=== PATIENT | female | born 1955 | race Caucasian/White ===

== ENCOUNTER 2018-04-01 08:38 | Outpatient (CLI) | payer BC | END 2018-04-01 08:39 | disposition home or self-care (01) | LOC: BICMAMMO 08:38 | PROVIDERS: ATTEND Obstetrics & Gynecology | DX: Z12.31 Encounter for screening mammogram for malignant neoplasm of breast (principal); R92.1 Mammographic calcification found on diagnostic imaging of breast | CPT/HCPCS: 77063; 77067 ==

== ENCOUNTER 2019-04-06 08:57 | Outpatient (CLI) | payer BC ==
--- NOTE | 2019-04-06 10:04 | BD ---
BONE DENSITOMETRY: Date: 04/06/19 HISTORY: Postmenopausal osteoporosis screening. FINDINGS: Lumbar Spine: BMD (g/cm2) L1 0.759 T-Score: -2.1 L2 0.820 T-Score: -1.9 L3 0.843 T-Score: -2.2 L4 0.790 T-Score: -2.5 Total 0.803 T-Score: -2.2 Left Femoral Neck: 0.613 T-Score: -2.1 Total Femur: 0.721 T-Score: -1.8 IMPRESSION: Bone mineral density of the lumbar spine and femoral neck both indicate osteopenia. POS: [facility]
--- NOTE | 2019-04-06 10:34 | MMO ---
Bilateral MAMMO Bilat Screen [facility]. CLINICAL HISTORY: Patient is 63 years old and is seen for screening. The patient has no family history of breast cancer. The patient has no personal history of cancer. VIEWS: The views performed were: bilateral craniocaudal with tomosynthesis and bilateral mediolateral oblique with tomosynthesis. FILMS COMPARED: The present examination has been compared to prior imaging studies performed at [facility] on 01/11/2015, 02/06/2016, 03/25/2017 and 04/01/2018. This study has been interpreted with the assistance of computer-aided detection. MAMMOGRAM FINDINGS: There are scattered fibroglandular densities. There are no suspicious masses, suspicious calcifications, or new areas of architectural distortion. IMPRESSION: THERE IS NO MAMMOGRAPHIC EVIDENCE OF MALIGNANCY. A ROUTINE FOLLOW-UP MAMMOGRAM IN 1 YEAR IS RECOMMENDED. THE RESULTS OF THIS EXAM WERE SENT TO THE PATIENT. ACR BI-RADS Category 1 - Negative MAMMOGRAPHY NOTE: 1. A negative mammogram report should not delay a biopsy if a dominant of clinically suspicious mass is present. 2. Approximately 10% to 15% of breast cancers are not detected by mammography. 3. Adenosis and dense breasts may obscure an underlying neoplasm. Reported by: PILAR NGUYỄN MD Electonically Signed: [id number]
== END 2019-04-06 08:58 | disposition home or self-care (01) ==
LOC: BICMAMMO 08:57
PROVIDERS: ATTEND Obstetrics & Gynecology
DX: Z12.31 Encounter for screening mammogram for malignant neoplasm of breast (principal); Z13.820 Encounter for screening for osteoporosis; M81.0 Age-related osteoporosis without current pathological fracture; M85.89 Other specified disorders of bone density and structure, multiple sites; Z79.890 Hormone replacement therapy
CPT/HCPCS: 77063; 77067; 77080